=== PATIENT | male | born 1980 | race Caucasian/White ===

== ENCOUNTER → 2017-04-01 12:00 | Outpatient (CLI) | payer OTHER, SELFPAY ==
[2017-04-01 14:16] LABS: Erythrocyte Sedimentation Rate < 1 mm/hr (0-15)
[2017-04-01 14:40] LABS: CRP < 2.90 mg/L (0.0-3.0); Rheumatoid Factor < 10.0 IU/mL (<15)
[2017-04-02 08:44] LABS: Vitamin B12 500 pg/mL (211-911); Vitamin D,25 Hydroxy 15.4 ng/mL (19.95-100.01)
[2017-04-02 14:00] LABS: ANTINUCLEAR ANTIBODIES DIRECT Negative (Negative)
== END ==
PROVIDERS: Family Provider Family Medicine; PCP Family Medicine; Visit Provider Family Medicine
DX: M25.50 Pain in unspecified joint (principal); R53.83 Other fatigue
CPT/HCPCS: 36415; 82306; 82607; 82746; 85652; 86038; 86140; 86431

== ENCOUNTER → 2017-05-15 12:23 | Outpatient (CLI) | payer OTHER, SELFPAY ==
[2017-05-15 14:36] LABS: Magnesium 2.4 mg/dL (1.6-2.6)
== END ==
PROVIDERS: Family Provider Family Medicine; PCP Family Medicine; Visit Provider Family Medicine
DX: E55.9 Vitamin D deficiency, unspecified (principal)
CPT/HCPCS: 36415; 83735

== ENCOUNTER → 2017-07-02 11:40 | Outpatient (CLI) | payer OTHER, SELFPAY ==
[2017-07-02 14:37] LABS: Vitamin D,25 Hydroxy 53.8 ng/mL (29.95-100.01)
== END ==
PROVIDERS: Family Provider Family Medicine; PCP Family Medicine; Visit Provider Family Medicine
DX: E55.9 Vitamin D deficiency, unspecified (principal)
CPT/HCPCS: 36415; 82306

== ENCOUNTER → 2017-12-22 10:22 | Outpatient (CLI) | payer OTHER, SELFPAY ==
[2017-12-22 12:16] LABS: Vitamin D,25 Hydroxy 29.2 ng/mL (29.95-100.01)
== END ==
PROVIDERS: Family Provider Family Medicine; PCP Family Medicine; Referring Provider Family Medicine; Visit Provider Family Medicine
DX: E55.9 Vitamin D deficiency, unspecified (principal)
CPT/HCPCS: 36415; 82306

== ENCOUNTER 2018-02-10 12:30 | Outpatient (RCR) | payer OTHER, SELFPAY ==
--- NOTE | 2017-04-10 15:23 | MASS.EVAL_ITS ---
Massage Therapy Evaluation: Evaluation Date: 04/02/2017 The patient is a 37 y.o. male, referred to [facility] by Dr. Rojas with a diagnosis of back pain. He presents today with the symptoms of pain and aching across the lower back with some radiating pain into the hips and lower extremities. He also reports a pressure on the right posterior and lateral rib cage. The pressure is not constant. It increases in stressful situations. The back pain has been intermittent for several years. Medications: Mobic Goals: Decrease muscle pain and tension Promote relaxation Stress relief The first treatment consisted of a one hour deep tissue massage to the full body. There were many knots through the interscapular area with the left side being worse than the right. The left IT band and vastus intermedius were very tender and tight. Tension on the right side as well but not as tender. The patient responded well to treatment with a slight decrease in muscle tension. I plan to see himone time per month for a total of ten one hour sessions of massage. Delma Harley LMT
--- NOTE | 2018-02-12 11:29 | MASS.DISCH ---
Massage Therapy Discharge Summary: Initial Evaluation: 04/02/2017 Diagnosis: Back Pain No. of Visits: Date of last visit: 02/10/2018 Goals: Decreased back pain Decreased muscle tension Decreased stress This patient is being discharged from our care at the [facility]. Thank you, Delma Harley LMT
== END 2018-02-10 19:00 | disposition home or self-care (01) ==
LOC: MASS 12:30
PROVIDERS: Family Provider Family Medicine; PCP Family Medicine; Visit Provider Family Medicine
DX: M25.50 Pain in unspecified joint (principal)
CPT/HCPCS: 97124

== ENCOUNTER 2018-12-07 16:30 | Outpatient (RCR) | payer OTHER, SELFPAY ==
--- NOTE | 2018-03-12 07:50 | MASS.EVAL ---
Massage Therapy Evaluation: Initial Evaluation Date: 03/04/2018 Referred By: Dr. Anette Rojas /Age: 1201/27/1980, 38 Diagnosis: Rib and Back pain Medications: none Goals: Decrease back pain Decrease stress Decrease muscle tension Assessment: The patient has high muscle tension over all with knots throughout the neck, shoulders and back. The hamstrings and paraspinal muscles were very tight and ropy. Plan: To be seen one time per month for a total of 10 visits.
--- NOTE | 2018-12-09 10:42 | MASS.DISCH ---
Massage Therapy Discharge Summary: Initial Evaluation Date: 03/04/2018 Diagnosis: Rib/Back Pain No. of Visits: 10 Date of last visit: 12/07/2018 Goals: Goals of decreased back pain, decreased muscle pain and decreased stress were met over the course of treatment. This patient is being discharged from our care at the [facility]. Thank you, Delma Harley LMT
== END 2018-12-07 19:00 | disposition home or self-care (01) ==
LOC: MASS 16:30
PROVIDERS: Family Provider Family Medicine; PCP Family Medicine; Visit Provider Family Medicine
DX: R07.81 Pleurodynia (principal); M54.9 Dorsalgia, unspecified
CPT/HCPCS: 97124

== ENCOUNTER → 2020-07-13 11:52 | Outpatient (CLI) | payer OTHER, SELFPAY ==
[2020-07-13 15:04] LABS: Absolute Lymphocyte Count 1.44 X10^3/uL (0.83-4.51); Absolute Neutrophil Count 2.8 X10^3/uL (2.0-7.7); Basophil# 0.04 X10^3/uL; Basophil% 0.8 % (0-1); Eosinophil# 0.11 X10^3/uL; Eosinophils% 2.3 % (0-5); Hematocrit 43.8 % (40-54); Hemoglobin 14.6 g/dL (13.0-16.5); Lymphocyte # 1.44 X10^3/ul (0.83-4.51); Lymphocyte % 30.3 % (19-41); Mean Corp Hgb Conc 33.3 g/dL (32-36); Mean Corpuscular Hgb 29.7 pg (27.0-32.0); Mean Corpuscular Volume 89.2 fL (80-94); Mean Platelet Vol. 10.9 fl (6.2-12.0); Monocyte# 0.35 X10^3/uL; Monocyte% 7.4 % (0-10); NRBC Flagged by Analyzer 0 % (0-5); Platelet Count 230 K/mm3 (150-450); RBC Distribution Width CV 12.2 % (11.6-14.6); RBC Distribution Width SD 40.2 fl (35.1-43.9); Red Blood Count 4.91 M/mm3 (4.6-6.2); White Blood Count 4.8 K/mm3 (4.4-11.0)
[2020-07-13 15:23] LABS: Internal QC Validated? YES +Cl - CLEAR BKGD; Monotest Negative (Negative)
[2020-07-13 15:25] LABS: Vitamin B12 568 pg/mL (211-911); Vitamin D,25 Hydroxy 34.6 ng/mL
[2020-07-13 15:33] LABS: ALB/GLOB Ratio 1.3 RATIO (0.9-2.4); AST(SGOT) 11 U/L (15-37); Alanine Aminotransfer ALT/SGPT 16 U/L (16-61); Alkaline Phosphatase 40 U/L (45-117); Anion Gap 4 (5-15); BUN 14 mg/dL (7-18); BUN/Creat Ratio 14.5 RATIO (10-20); Calcium,Total 8.9 mg/dL (8.5-10.1); Chloride 106 mmol/L (98-107); Creatinine, Serum 0.97 mg/dL (0.70-1.30); EST Glomerular Filtration Rate 90 mL/min (>60); Est Glom Filt Rate - Afr Amer 109 mL/min (>60); Globulin 3.1 g/dL (2.2-4.2); Glucose 85 mg/dL (74-106); Potassium 3.7 mmol/L (3.5-5.1); Protein, Total 7.1 g/dL (6.4-8.2); Sodium Level 141 mmol/L (136-145); Thyroid Stim Hormone (TSH) 1.85 uIU/mL (0.358-3.74)
== END ==
PROVIDERS: PCP Family Medicine; Referring Provider Family Medicine; Visit Provider Family Medicine
DX: R53.83 Other fatigue (principal); J02.9 Acute pharyngitis, unspecified
CPT/HCPCS: 36415; 80053; 82306; 82607; 84443; 85025; 86308

== ENCOUNTER → 2024-12-27 | Outpatient (CLI) | payer BC, SELFPAY ==
[2024-12-27 17:35] LABS: Hematocrit 44.1 % (40-54); Hemoglobin 14.9 g/dL (13.0-16.5); Immature Granulocytes Count 0.010 X10^3/uL (0.0-0.0); Mean Corp Hgb Conc 33.8 g/dL (32-36); Mean Corpuscular Volume 89.8 fL (80-94); Mean Platelet Vol. 10.6 fl (6.2-12.0); NRBC Flagged by Analyzer 0 % (0-5); Platelet Count 262 K/mm3 (150-450); RBC Distribution Width CV 12.5 % (11.6-14.6); RBC Distribution Width SD 41.4 fl (35.1-43.9); Red Blood Count 4.91 M/mm3 (4.6-6.2); White Blood Count 6.7 K/mm3 (4.4-11.0)
[2024-12-27 18:26] LABS: AST(SGOT) 21 U/L (<=37); Alanine Aminotransfer ALT/SGPT 13 U/L (<=46); Albumin, Serum 4.7 g/dL (3.5-5.0); Alkaline Phosphatase 42 U/L (40-129); Anion Gap 9 (5-15); BUN 13 mg/dL (4-19); BUN/Creat Ratio 14.8 RATIO (10-20); Calcium,Total 9.8 mg/dL (7.6-11.0); Carbon Dioxide 29.4 mmol/L (21.0-32.0); Chloride 102 mmol/L (98-108); Cholesterol 197 mg/dL (<=200); Globulin 2.5 g/dL (2.2-4.2); Glucose 101 mg/dL (70-99); Low Density Lipoprotein Calc. 120 mg/dL; PSA,Total - Annual Screen 1.07 ng/mL (0.02-4.00); Potassium 4.0 mmol/L (3.3-5.1); Triglycerides 50 mg/dL; Very Low Density Lipoprotein 10 mg/dL (5-40); Vitamin B12 578 pg/mL (180-914); Vitamin D,25 Hydroxy 26.2 ng/mL (30-100); cholesterol:hdl ratio screen 2.91
== END | disposition home or self-care (01) ==
LOC: BFHLAB 14:58
PROVIDERS: PCP Nurse Practitioner Family; Visit Provider Nurse Practitioner Family
DX: Z00.01 Encounter for general adult medical examination with abnormal findings (principal); R53.83 Other fatigue; Z12.5 Encounter for screening for malignant neoplasm of prostate
CPT/HCPCS: 36415; 80053; 80061; 82306; 82607; 84153; 84439; 84443; 85025; G0103